=== PATIENT | female | born 1980 | race Two or more races ===

== ENCOUNTER 2017-09-26 05:50 | Inpatient (IN) | payer OTHER ==
[~2017-09-26] VITALS: Ht 160 cm; Wt 75.7 kg
== END 2017-09-28 12:22 | DRG 775 ==
LOC: LDR 05:50 → OB/GYN 05:50
PROC: 10E0XZZ Delivery of Products of Conception, External Approach (ICD-10-PCS; principal; 2017-09-26)
PROC: 0HQ9XZZ Repair Perineum Skin, External Approach (ICD-10-PCS; 2017-09-26)
PROC: 3E033VJ Introduction of Other Hormone into Peripheral Vein, Percutaneous Approach (ICD-10-PCS; 2017-09-26)
PROC: 4A1HXCZ Monitoring of Products of Conception, Cardiac Rate, External Approach (ICD-10-PCS; 2017-09-26)
DX: O70.0 First degree perineal laceration during delivery (principal); Z3A.38 38 weeks gestation of pregnancy; Z37.0 Single live birth; O09.523 Supervision of elderly multigravida, third trimester